=== PATIENT | male | born 1975 | race Hispanic/Latino ===

== ENCOUNTER 2017-09-25 14:31 | Outpatient (CLI) | payer BC, OTHER ==
[~2017-09-25 14:31] MED LIST: Iopamidol 370 76% 100 ML VIAL ONE
== END 2017-09-25 14:32 | disposition home or self-care (01) ==
LOC: BICCT 14:31
PROVIDERS: ATTEND Urology
DX: R31.29 Other microscopic hematuria (principal); N28.1 Cyst of kidney, acquired
CPT/HCPCS: 74178